=== PATIENT | female | born 1965 | race Caucasian/White ===

== ENCOUNTER 2019-06-12 19:19 | Emergency (ER) | payer BC ==
[2019-06-12 19:31] VITALS: BP 145/80
[2019-06-12] MEDS ORDERED: Tetan/Diph/Pertus SYR(Tdap)* 0.5 ML SYR(BOOSTRIX) use SYR contains LATEX IM ONE (19:41)
[2019-06-12] MEDS ORDERED: Lidocaine 2% PF 5 ML VIAL INJ ONE (19:41)
== END 2019-06-12 20:35 | disposition home or self-care (01) ==
LOC: UCCORT 19:19